=== PATIENT | female | born 1995 | race Caucasian/White ===

== ENCOUNTER 2022-06-22 08:53 | Outpatient (CLI) | payer OTHER, SELFPAY ==
--- NOTE | ~2022-06-22 | XR_ITS ---
EXAMINATION: XR chest 2V DATE: 06/22/2022 09:12 INDICATION: Vitamin D deficiency TECHNIQUE: Frontal and lateral views of the chest are obtained COMPARISON: None available FINDINGS: The lungs are free of acute opacities. No pleural effusion or pneumothorax. The cardiomedia stinal silhouette is normal. The visualized bones and soft tissues are unremarkable. IMPRESSION: 1. No acute cardiopulmonary abnormality. Reviewed, dictated and finalized at location B.
--- NOTE | 2022-06-22 09:44 | ECG_ITS ---
Rate 74 AL 169 QRSd 94 QT 379 QTc 422 --[place]-- P 11 QRS 8 T 3 SINUS RHYTHM NORMAL ECG Electronically Signed On 06-22-2022 10:58:48 CDT by Hung LESLIE
== END 2022-06-22 08:54 | disposition home or self-care (01) ==
LOC: CHSCARD 08:57
PROVIDERS: PCP Family Medicine
DX: E55.9 Vitamin D deficiency, unspecified (principal); E66.01 Morbid (severe) obesity due to excess calories; Z01.812 Encounter for preprocedural laboratory examination
CPT/HCPCS: 71046; 93005

== ENCOUNTER 2022-12-15 10:59 | Outpatient (CLI) | payer OTHER, SELFPAY ==
--- NOTE | 2022-12-15 11:20 | ECG_ITS ---
Measurements Intervals [place] Rate: 84 P: 21 ME: 169 QRS: -4 QRSD: 96 T: 11 QT: 358 QTc: 425 Interpretive Statements SINUS RHYTHM DELAYED PRECORDIAL R/S TRANSITION VOLTAGE CRITERIA FOR LVH BASELINE ARTIFACT- I, III, AVL BORDERLINE ECG COMPARED TO ECG 06/22/2022 09:44:49 LEFT VENTRICULAR HYPERTROPHY NOW PRESENT Electronically Signed On 12-15-2022 12:08:49 [place] HAND by Hung Champion D.O.
== END 2022-12-15 11:00 | disposition home or self-care (01) ==
PROVIDERS: PCP Family Medicine
DX: Z01.812 Encounter for preprocedural laboratory examination (principal); E78.00 Pure hypercholesterolemia, unspecified; E66.01 Morbid (severe) obesity due to excess calories
CPT/HCPCS: 93005